=== PATIENT | female | born 1955 | race Caucasian/White ===

== ENCOUNTER → 2017-03-29 | Day surgery (SDC) | payer BC ==
[~2017-03-29] MED LIST: Lactated Ringers 1,000 ML IV SCH; Propofol 200 MG/20 ML SDV IV ONE
[2017-03-29 08:18] VITALS: BP 131/82
--- NOTE | 2017-03-29 12:54 | OR ---
DATE OF OPERATION: 03/29/2017 PREOPERATIVE DIAGNOSIS: SCREENING COLONOSCOPY. POSTOPERATIVE DIAGNOSIS: SCREENING COLONOSCOPY. SURGEON: Trav Bullard MD PROCEDURE: FULL-LENGTH COLONOSCOPY. ANESTHESIA: PHP ARCHITECT. COMPLICATIONS: None. SPECIMEN: None. FINDINGS: 1. Full-length colonoscopy. 2. Mild sigmoid diverticulosis. RECOMMENDATIONS: Routine colonoscopy every 10 years. INDICATIONS: The patient was in for routine physical, it has been over 10 years since her last screening procedure. Faiza Sawant PA-C, recommended colonoscopy. DESCRIPTION OF PROCEDURE: The patient was prepped and draped, placed in the left lateral decubitus position. A lubricated Olympus colonoscope was inserted and with ease advanced to the cecum. We were able to directly visualize the ileocecal valve and appendiceal orifice. The bowel prep was excellent. Upon withdrawal of the scope throughout the entire length of the colon, I found no signs of any polyps, masses, ulcerations, or bleeding sites. No vascular abnormalities or signs of colitis. The patient did have a few scattered diverticula in the mid to distal sigmoid area, into the rectosigmoid junction, no acute inflammatory changes were seen. The rectal vault was unremarkable. Retroflexion of the scope in the rectum showed no perianal changes or masses. Air was then suctioned. The scope was removed without complication. NORBERTO/APURVA /[id number]
== END ==
LOC: CC.SDS 06:23
PROVIDERS: ATTEND Family Medicine
DX: Z12.11 Encounter for screening for malignant neoplasm of colon (principal); K57.30 Diverticulosis of large intestine without perforation or abscess without bleeding
CPT/HCPCS: 45378; J2704; J7120

== ENCOUNTER 2018-06-09 22:40 | Inpatient (IN) | payer BC ==
[2018-06-09] MEDS ORDERED: Sodium Chloride 0.9% 1,000 ML IV ONE (22:51)
[2018-06-09] MEDS ORDERED: Ondansetron 4 MG/2 ML SDV ONE (22:52)
[2018-06-09] MEDS ORDERED: fentaNYL 100 MCG/2 ML SDV ONE (22:52)
[2018-06-09] MEDS ORDERED: fentaNYL 100 MCG/2 ML SDV IVPUSH ONE (22:59)
[2018-06-09] MEDS ORDERED: Pantoprazole 40 MG Vial IVPUSH SCH (23:00)
[2018-06-09] MEDS ORDERED: Ondansetron 4 MG/2 ML SDV IVPUSH ONE ×2 (23:00→23:09)
[2018-06-09 23:11] LABS: CHLORIDE,CL 105 mEq/L (98-106); SODIUM,NA 137 mEq/L (136-145)
--- NOTE | 2018-06-09 23:35 | EDM.PDOC ---
ED HPI GENERAL MEDICAL PROBLEM - General Chief Complaint: Abdominal Pain Stated Complaint: ABDOMINAL PAIN Time Seen by Provider: 06/09/18 22:50 Source of Information: Reports: Patient - History of Present Illness INITIAL COMMENTS - FREE TEXT/NARRATIVE: States that she started to have abdominal pain about 1pm today. The pain has progressively become worse until she presented to the ER with severe pain. She vomited when she arrived here. She had diarrhea stool times 2. She is complaining of abdominal pain across the top of the abdomen. No fever. has never had pain like this before. Has had an appendectomy, still has gallbladder. Has not ate anything unusual. Onset: Today Duration: Getting Worse Location: Reports: Abdomen Quality: Reports: Stabbing Severity: Severe Associated Symptoms: Reports: Nausea/Vomiting Abdominal Pain Score (Numeric/FACES): 9 - Related Data Allergies Allergy/AdvReac Type Severity Reaction Status Date / Time No Known Allergies Allergy Verified 03/29/17 06:32 Home Meds: Home Meds Aspirin 325 mg PO BEDTIME 03/28/17 [History] Cholecalciferol (Vitamin D3) [Vitamin D3] 1,000 units PO DAILY 03/28/17 [History ] Magnesium 250 mg PO DAILY 03/28/17 [History] Calcium Carbonate [Calcium] 500 mg PO DAILY 06/09/18 [History] Celecoxib 200 mg PO DAILY 06/09/18 [History] Letrozole 2.5 mg PO BEDTIME 06/09/18 [History] Simvastatin 20 mg PO BEDTIME 06/09/18 [History] Past Medical History - Past Surgical History GI Surgical History: Reports: Appendectomy Social & Family History - Tobacco Use Smoking Status *Q: Never Smoker - Caffeine Use Caffeine Use: Reports: Coffee - Living Situation & Occupation Living situation: Reports: , Alone Occupation: Employed ED ROS GENERAL - Review of Systems Review Of Systems: See Below Constitutional: Denies: Fever, Chills HEENT: Reports: No Symptoms Respiratory: Reports: No Symptoms Cardiovascular: Reports: No Symptoms GI/Abdominal: Reports: Abdominal Pain, Diarrhea, Nausea, Vomiting : Reports: No Symptoms Musculoskeletal: Reports: No Symptoms Skin: Reports: No Symptoms Neurological: Reports: No Symptoms Psychiatric: Reports: No Symptoms Hematologic/Lymphatic: Reports: No Symptoms ED EXAM, GI/ABD - Physical Exam Exam: See Below Exam Limited By: No Limitations General Appearance: Alert, WD/WN, Severe Distress Eyes: Bilateral: Normal Appearance Ears: Normal Canal, Normal TMs Nose: Normal Inspection, Normal Mucosa Throat/Mouth: Normal Inspection, Normal Oropharynx, No Airway Compromise Head: Atraumatic, Normocephalic Neck: Normal Inspection, Supple, Non-Tender, Full Range of Motion Respiratory/Chest: No Respiratory Distress, Lungs Clear, Normal Breath Sounds Cardiovascular: Regular Rate, Rhythm, No Edema GI/Abdominal Exam: Soft, Tender (abdomen is tender throughout the entire abdomen.), Abnormal Bowel Sounds (No bowel sounds heard) Back Exam: Normal Inspection Extremities: No Pedal Edema, Normal Capillary Refill Neurological: Alert, Oriented, Normal Cognition Psychiatric: Normal Affect Skin Exam: Warm, Dry, Intact Course - Vital Signs Last Recorded V/S: Last Vital Signs Temp 97.2 F 06/09/18 23:56 Pulse 73 06/09/18 23:56 Resp 20 06/09/18 23:56 BP 116/55 L 06/09/18 23:56 Pulse Ox 99 06/09/18 23:56 - Orders/Labs/Meds Orders: Active Orders 24 hr Category Date Time Status Patient Status [ADT] Routine ADT 06/09/18 23:56 Active Height and Weight [RC] .PRN Care 06/09/18 23:56 Active Intake and Output [RC] 0600,1800 Care 06/09/18 23:56 Active Oxygen Therapy [RC] .PRN Care 06/09/18 23:56 Active Up ad Betzy [RC] .PRN Care 06/09/18 23:56 Active Vital Signs [RC] 0000,0400,0800,1200,1600,2000 Care 06/09/18 23:56 Active Nothing per Oral Now Diet [DIET] Diet 06/09/18 Breakfast Active Abdomen Pelvis w Cont [CT] Routine Exams 06/09/18 Taken C-REACTIVE PROTEIN [CHEM] AM Lab 06/10/18 05:11 Ordered CBC WITH AUTO DIFF [HEME] AM Lab 06/10/18 05:11 Ordered COMPREHENSIVE METABOLIC PN,CMP [CHEM] AM Lab 06/10/18 05:11 Ordered STOOL CULTURE [MREF] Stat Lab 06/09/18 22:48 Ordered UA W/MICROSCOPIC [URIN] Stat Lab 06/09/18 22:48 Ordered Enoxaparin [Lovenox] Med 06/09/18 23:56 Active 30 mg SUBCUT Q24H Ondansetron [Zofran] Med 06/09/18 23:56 Active 4 mg IV Q4H PRN Sodium Chloride 0.9% [Normal Saline] 1,000 ml Med 06/09/18 23:56 Active IV ASDIRECTED Resuscitation Status Routine Resus Stat 06/09/18 23:51 Ordered Medication Orders Enoxaparin Sodium (Lovenox) 30 mg SUBCUT Q24H [facility] Last Admin: 06/10/18 00:28 Dose: 30 mg Fentanyl (Sublimaze) 50 mcg IVPUSH Q4H PRN PRN Reason: Pain Last Admin: 06/10/18 00:26 Dose: 50 mcg Sodium Chloride (Normal Saline) 1,000 mls @ 125 mls/hr IV ASDIRECTED [facility] Last Admin: 06/10/18 00:26 Dose: 125 mls/hr Ondansetron HCl (Zofran) 4 mg IV Q4H PRN PRN Reason: Nausea/Vomiting Pantoprazole Sodium (Protonix Iv) 40 mg IVPUSH Q24H [facility] Labs: Laboratory Tests 06/09/18 06/09/18 06/09/18 Range/Units 22:48 22:50 22:50 WBC 8.5 (5.0-10.0) 10^3/uL RBC 4.42 (4.00-5.50) 10^6/uL Hgb 13.5 (12.0-16.0) g/dL Hct 39.6 (37.0-47.0) % MCV 89.6 (82.0-94.0) fL MCH 30.5 (27.0-32.0) pg MCHC 34.1 (33.0-38.0) g/dL RDW Coeff of Felisa 12.7 (11.0-15.0) % Plt Count 236 (150-400) 10^3/uL Neut % (Auto) 78.6 (35-85) % Lymph % (Auto) 13.8 (10-55) % [place] % (Auto) 6.1 (0-16) % Eos % (Auto) 1.3 (0-5) % Baso % (Auto) 0.2 (0-3) % Neut # (Auto) 6.64 (1.80-7.00) 10^3/uL Lymph # (Auto) 1.17 (1.00-4.80) 10^3/uL [place] # (Auto) 0.52 (0.00-0.80) 10^3/uL Eos # (Auto) 0.11 (0.00-0.45) 10^3/uL Baso # (Auto) 0.02 10^3/uL Sodium 137 (136-145) mEq/L Potassium 3.8 (3.5-5.0) mEq/L Chloride 105 (98-106) mEq/L Carbon Dioxide 25 (21-32) mmol/L BUN 18 (7-18) mg/dL Creatinine 0.9 (0.6-1.0) mg/dL Est Cr Clr Drug Dosing 49.95 mL/min Estimated GFR (MDRD) > 60 (>=60) mL/min Glucose 134 H D (75-99) mg/dL Calcium 9.5 (8.4-10.1) mg/dL Total Bilirubin 0.4 (0.0-1.0) mg/dL AST 21 (15-37) U/L ALT 24 (12-78) U/L Alkaline Phosphatase 65 (46-116) U/L C-Reactive Protein 0.5 (0.2-0.8) mg/dL Total Protein 7.4 (6.4-8.2) g/dL Albumin 3.9 (3.4-5.0) g/dL Amylase 140 H (25-115) U/L Urine Color Yellow (YELLOW) Urine Appearance Slightly cloudy (CLEAR) Urine pH 6.0 (4.5-8.0) Ur Specific [place] 1.025 H (1.003-1.020) Urine Protein Negative (NEGATIVE) mg/dL Urine Glucose (UA) Negative (NEGATIVE) mg/dL Urine Ketones 15 H (NEGATIVE) mg/dL Urine Occult Blood Trace-intact H (NEGATIVE) Urine Nitrite Negative (NEGATIVE) Urine Bilirubin Negative (NEGATIVE) Urine Urobilinogen 0.2 (0.2-1.0) EU/dL Ur Leukocyte Esterase Small H (NEGATIVE) Urine RBC 0-5 (0-5) /HPF Urine WBC 5-10 H (0-5) /HPF Ur Squamous Epith Cells Few H (NOT SEEN) /HPF Urine Bacteria Few H (NOT SEEN) /HPF Meds: Medications Generic Name Dose Route Start Last Admin Trade Name Freq PRN Reason Stop Dose Admin Enoxaparin Sodium 30 mg 06/09/18 23:56 06/10/18 00:28 Lovenox SUBCUT 30 mg Q24H JOSSELIN Administration Fentanyl 50 mcg 06/10/18 00:17 06/10/18 00:26 Sublimaze IVPUSH 50 mcg Q4H PRN Administration Pain Sodium Chloride 1,000 mls @ 125 mls/hr 06/09/18 23:56 06/10/18 00:26 Normal Saline IV 125 mls/hr ASDIRECTED JOSSELIN Administration Ondansetron HCl 4 mg 06/09/18 23:56 Zofran IV Q4H PRN Nausea/Vomiting Pantoprazole Sodium 40 mg 06/10/18 20:00 Protonix Iv IVPUSH Q24H JOSSELIN Discontinued Medications Generic Name Dose Route Start Last Admin Trade Name Freq PRN Reason Stop Dose Admin Fentanyl 50 mcg 06/09/18 22:59 06/09/18 23:02 Sublimaze IVPUSH 06/09/18 23:00 50 mcg ONETIME ONE Administration Fentanyl Confirm 06/09/18 22:52 06/09/18 23:10 Sublimaze Administered 06/09/18 22:53 Not Given Dose 100 mcg .ROUTE .STK-MED ONE Sodium Chloride 1,000 mls @ 999 mls/hr 06/09/18 22:51 06/09/18 23:25 Normal Saline IV 06/09/18 23:51 999 mls/hr .BOLUS ONE Administration Ondansetron HCl 4 mg 06/09/18 23:00 06/09/18 23:13 Zofran IVPUSH 06/09/18 23:01 4 mg STAT ONE Administration Ondansetron HCl Confirm 06/09/18 22:52 06/09/18 23:10 Zofran Administered 06/09/18 22:53 Not Given Dose 8 mg .ROUTE .STK-MED ONE Ondansetron HCl 4 mg 06/09/18 23:09 06/09/18 23:05 Zofran IVPUSH 06/09/18 23:10 4 mg STAT ONE Administration Pantoprazole Sodium 40 mg 06/09/18 23:00 06/09/18 22:50 Protonix Iv IVPUSH 40 mg Q24H JOSSELIN Administration - Re-Assessments/Exams Free Text/Narrative Re-Assessment/Exam: 06/09/18 23:30 states that the pain is better and the nausea has improved. Discussed the normal labs except the amylase is elevated. She denies alcohol use. Departure - Departure Time of Disposition: 23:55 Disposition: Admitted As Inpatient 64 Condition: Fair Clinical Impression: Small bowel obstruction - Discharge Information *PRESCRIPTION DRUG MONITORING PROGRAM REVIEWED*: Not Applicable *COPY OF PRESCRIPTION DRUG MONITORING REPORT IN PATIENT MABLE: Not Applicable - Problem List & Annotations (1) Small bowel obstruction SNOMED Code(s): 434226669 Code(s): K56.609 - UNSP INTESTNL OBST, UNSP TO PARTIAL VERSUS COMPLETE OBST Status: Acute Priority: High Current Visit: Yes - Problem List Review Problem List Initiated/Reviewed/Updated: Yes - My Orders Last 24 Hours: My Active Orders 06/09/18 Abdomen Pelvis w Cont [CT] Routine 06/09/18 22:48 STOOL CULTURE [MREF] Stat UA W/MICROSCOPIC [URIN] Stat 06/09/18 23:51 Resuscitation Status Routine 06/09/18 23:56 Patient Status [ADT] Routine Height and Weight [RC] .PRN Intake and Output [RC] 0600,1800 Oxygen Therapy [RC] .PRN Up ad Betzy [RC] .PRN Vital Signs [RC] 0000,0400,0800,1200,1600,2000 Enoxaparin [Lovenox] 30 mg SUBCUT Q24H Ondansetron [Zofran] 4 mg IV Q4H PRN Sodium Chloride 0.9% [Normal Saline] 1,000 ml IV ASDIRECTED 06/09/18 Breakfast Nothing per Oral Now Diet [DIET] 06/10/18 05:11 C-REACTIVE PROTEIN [CHEM] AM CBC WITH AUTO DIFF [HEME] AM COMPREHENSIVE METABOLIC PN,CMP [CHEM] AM - Assessment/Plan Admission H&P: Please use this note as an admission H&P Last 24 Hours: My Active Orders 06/09/18 Abdomen Pelvis w Cont [CT] Routine 06/09/18 22:48 STOOL CULTURE [MREF] Stat UA W/MICROSCOPIC [URIN] Stat 06/09/18 23:51 Resuscitation Status Routine 06/09/18 23:56 Patient Status [ADT] Routine Height and Weight [RC] .PRN Intake and Output [RC] 0600,1800 Oxygen Therapy [RC] .PRN Up ad Betzy [RC] .PRN Vital Signs [RC] 0000,0400,0800,1200,1600,2000 Enoxaparin [Lovenox] 30 mg SUBCUT Q24H Ondansetron [Zofran] 4 mg IV Q4H PRN Sodium Chloride 0.9% [Normal Saline] 1,000 ml IV ASDIRECTED 06/09/18 Breakfast Nothing per Oral Now Diet [DIET] 06/10/18 05:11 C-REACTIVE PROTEIN [CHEM] AM CBC WITH AUTO DIFF [HEME] AM COMPREHENSIVE METABOLIC PN,CMP [CHEM] AM Plan: Will admit to acute care Dr. Bullard service. NG, IV protonix, Zofran, and Fentanyl for pain.
[2018-06-09] MEDS ORDERED: Ondansetron 4 MG/2 ML SDV IV PRN (23:56)
[2018-06-09] MEDS ORDERED: Enoxaparin 30 MG/0.3 ML Syringe SUBCUT SCH (23:56)
[2018-06-10] MEDS ORDERED: fentaNYL 100 MCG/2 ML SDV IVPUSH PRN ×2 (00:17→00:51)
[2018-06-10] MEDS: Sodium Chloride 0.9% 1,000 ML IV SCH ×4 (00:26→23:51)
[2018-06-10] MEDS: Non-Formulary Medication 1 Each IVPUSH SCH ×2 (05:45→18:08)
[2018-06-10 07:20] LABS: CHLORIDE,CL 109 mEq/L (98-106); SODIUM,NA 139 mEq/L (136-145)
--- NOTE | 2018-06-10 11:51 | PN ---
DATE: 06/10/2018 S: Cathy is a 62-year-old female who started to develop abdominal pain yesterday afternoon around 1 o'clock. She ended up having some nausea and vomiting around 10:30 last night and ended up coming into the emergency room. CT scan was done and did show small bowel obstruction. She was admitted to the hospital, NG tube was placed. Cathy states that she did have another episode of emesis in the middle of night, however, has not had any since. She denies any flatulence. States she has not had any bowel movements since NG tube placement. She has got out 150 on the NG tube. They are currently giving her back fluids at 137 ml an hour. She states that she really does not have much of any abdominal pain presently. She denies any previous history of any abdominal surgeries minus appendectomy. She states that she still has her gallbladder, has had no C- section, no hysterectomy, etc. Presently, she did complain of a little bit of headache secondary to caffeine. She is requesting Mountain Dew at this point in time. Otherwise, she has not been up ambulation. Urinalysis yesterday was questionable for possible UTI. No culture was ordered. We will proceed with repeat urinalysis and culture today. O: VITAL SIGNS: Blood pressure 124/61 with a pulse of 86, temp is afebrile at 98, respiratory rate 18, and O2 sats 96%. GENERAL: Pleasant, cooperative female. Does not really appear to be in any acute distress, not acutely ill. She is sitting comfortably in examination on her hospital bed. HEENT: Grossly unremarkable. LUNGS: Clear to auscultation. No adventitious sounds. No wheezes, rhonchi, or rales. CARDIAC: Regular rate and rhythm. No murmurs, gallops, or rubs are noted. ABDOMEN: Soft. Mild tenderness in the right lower quadrant. Bowel sounds are present in right upper quadrant, otherwise scant throughout. EXTREMITIES: No pedal edema is noted. ASSESSMENT: 1. SMALL BOWEL OBSTRUCTION. 2. QUESTIONABLE URINARY TRACT INFECTION. P: After review of all of her laboratory work and consultation with Dr. Trav Bullard, it does appear that her amylase was elevated yesterday at 140, now currently 70 today. We will get a right upper quadrant ultrasound along with repeat x-ray of the abdomen flat and upright. We will consider clamping NG tube at noon today with given sips of Mountain Dew at that point in time to see if she tolerates it. We did encourage her that she needs to be up moving around and being ambulatory. Cathy is in complete understanding. We will evaluate this afternoon again. CLAUDIA /[id number]
[2018-06-10] MEDS ORDERED: Ketorolac 30 MG/ML SDV IVPUSH ONE (13:27)
[2018-06-10] MEDS: cefTRIAXone 1 GM Vial IVPUSH SCH (13:45)
[2018-06-10] MEDS ORDERED: Enoxaparin 30 MG/0.3 ML Syringe SUBCUT SCH (20:00)
[2018-06-10] MEDS ORDERED: Pantoprazole 40 MG Vial IVPUSH SCH (20:00)
[2018-06-11] MEDS: Non-Formulary Medication 1 Each IVPUSH SCH (06:09)
[2018-06-11] MEDS ORDERED: Ketorolac 30 MG/ML SDV IVPUSH ONE (10:10)
[2018-06-11] MEDS: cefTRIAXone 1 GM Vial IVPUSH SCH (12:29)
[2018-06-11] MEDS: Sodium Chloride 0.9% 1,000 ML IV SCH (15:36)
[2018-06-11 16:15] VITALS: BP 113/53
--- NOTE | 2018-06-11 20:07 | PN ---
DATE: 06/11/2018 S: Mrs. Morgan is a 62-year-old female who was admitted to the hospital on 06/09/2018 by Faiza Sawant secondary to a small bowel obstruction. She had an NG tube placed in which she did not have any further vomiting. She up until now has not had any bowel movement since admission, however, she does admit that her bowels have been appearing to be moving well. She does admit to excessive amount of gas. Discomfort has improved as well. She did have some clear liquids, which she has been able to keep down. She states that currently she does not really have much in any discomfort. O: VITAL SIGNS: Blood pressure 121/62, O2 is 91% to 95%, respiratory rate 18, and pulse of 60. GENERAL: Pleasant, cooperative female. Does not really appear to be in any acute distress, not acutely ill. HEENT: Grossly unremarkable. LUNGS: Clear to auscultation. I do not hear any adventitious sounds. CARDIAC: Regular. ABDOMEN: Soft, fairly benign throughout. Bowel sounds are normoactive. EXTREMITIES: No pedal edema is noted. SKIN: Uniformly pink, warm, and dry. ASSESSMENT: SMALL BOWEL OBSTRUCTION. P: I did consult with Dr. Trav Bullard in regard to Mrs. Morgan's condition. We will look at advancing her diet to full liquid diet at lunch today and having NG tube removed. I will see how she does with this. If she starts to have some bowel movements, we will get her up and continue to be ambulatory. We will look at possibly discharge home this evening. Mrs. Morgan was in complete understanding. ABDIRAHMAN/APURVA /[id number]
--- NOTE | 2018-06-12 09:28 | DISCH ---
ADMISSION DIAGNOSIS: Partial small bowel obstruction. DISCHARGE DIAGNOSIS: PARTIAL SMALL BOWEL OBSTRUCTION. HISTORY: The patient is a healthy 62-year-old female, who presented to the emergency room for acute onset of abdominal pain, vomiting, and a few brief episodes of diarrhea. She was evaluated by Faiza Sawant. At that time, she had stable and normal vital signs without fever. Lab work was essentially unremarkable, although she had a slightly elevated amylase and she was volume contracted with a spec gravity of 1.025. CT scanning of the abdomen showed a partial small bowel obstruction. She was admitted to the hospital for appropriate cares including IV fluids and G-tube placement. HOSPITAL COURSE: The patient did well while in the hospital. On the morning after admission, the patient had a mild amount of NG output in the first 12 hours and then slowed down considerably. She was not having much for any significant abdominal pain after about 20 hours in the hospital, actually clamped her NG and allowed her to start some clear liquids. On the morning of discharge, which is approximately 36 hours after admission, the patient tolerated the NG clamping. We had serial flat and upright of the abdomen, which showed what appeared to be resolution of her air fluid levels and air passing all the way through the colon to the rectal area. She was passing gas and ultimately had 2 stools. We advanced her to a full liquid diet. At the time of her discharge late in the afternoon on the , the patient was pain free, having no issues with bloating, nausea, vomiting, etc. We felt her stable to be discharged home on strict dietary instructions for slow advancement of her diet. We will follow her up in the clinic next week for recheck. COMPLICATIONS: During her stay were none. CONSULTATIONS: None. DISPOSITION: Discharged home. MAO /[id number]
== END 2018-06-11 17:00 | disposition home or self-care (01) | DRG 247 ==
LOC: CC.ED 22:40 → CC.MS 23:51 → UNDOADMIN 23:53 → CC.MS 23:53
PROVIDERS: ADMIT Physician Assistant Medical; ATTEND Family Medicine
PROC: 0D9670Z Drainage of Stomach with Drainage Device, Via Natural or Artificial Opening (ICD-10-PCS; principal; 2018-06-09)
DX: K56.600 Partial intestinal obstruction, unspecified as to cause (principal); Z79.899 Other long term (current) drug therapy; Z79.82 Long term (current) use of aspirin; N39.0 Urinary tract infection, site not specified
CPT/HCPCS: 36415; 74019; 74177; 76705; 80053; 81001; 82150; 85025; 86140; 87045; 87046; 87086; 87493; 96365; 96366; 96375; 99285; C9113; J0696; J1650; J1885; J2405; J3010; J7030; Q9967

== ENCOUNTER 2018-10-25 08:13 | Observation (INO) | payer BC ==
[2018-10-25] MEDS ORDERED: Morphine 4 MG/ML Syringe IVPUSH ONE (08:23)
[2018-10-25] MEDS ORDERED: Ondansetron 4 MG/2 ML SDV IVPUSH STA ×2 (08:23→23:10)
--- NOTE | 2018-10-25 08:56 | EDM.PDOC ---
ED HPI GENERAL MEDICAL PROBLEM - General Chief Complaint: Lower Extremity Injury/Pain Stated Complaint: left hip pain Time Seen by Provider: 10/25/18 08:15 Source of Information: Reports: Patient History Limitations: Reports: No Limitations - History of Present Illness INITIAL COMMENTS - FREE TEXT/NARRATIVE: This patient is a 63 year old female that presents to the ER. Patient reports that she woke up this morning with let anterior hip pain. Patient reports that she has never had this pain before. Patient reports that the pain is severe and she was not able to get up this morning. Patient denies injury or falling. Patient reports that she has not had issues out of this hip before. The patient denies cummings, dizziness, neck pain, neck stiffness, cp, soa, back pain, flank pain , urinary/bowel changes, urinary incontinence, bowel incontinence, n, v, d, f, numbness/tingling, unilateral weakness, generalized weakness, edema, rashes. Onset: Today Onset Date: 10/25/18 Duration: Hour(s): (3) Location: Reports: Lower Extremity, Left Front/Back Body Image: 1 - pain, tenderness. Quality: Reports: Sharp, Throbbing Improves with: Reports: Other (applying pressure on the site.) Associated Symptoms: Denies: Confusion, Chest Pain, Cough, cough w sputum, Diaphoresis, Fever/Chills, Headaches, Loss of Appetite, Nausea/Vomiting, Rash, Seizure, Shortness of Breath, Weakness Left Hip Pain Score (Numeric/FACES): 10 - Related Data Allergies Allergy/AdvReac Type Severity Reaction Status Date / Time No Known Allergies Allergy Verified 10/25/18 08:21 Home Meds: Home Meds Aspirin 325 mg PO BEDTIME 03/28/17 [History] Cholecalciferol (Vitamin D3) [Vitamin D3] 1,000 units PO DAILY 03/28/17 [History ] Magnesium 250 mg PO DAILY 03/28/17 [History] Calcium Carbonate [Calcium] 500 mg PO DAILY 06/09/18 [History] Celecoxib 200 mg PO DAILY 06/09/18 [History] Letrozole 2.5 mg PO BEDTIME 06/09/18 [History] Simvastatin 20 mg PO BEDTIME 06/09/18 [History] Past Medical History HEENT History: Reports: Impaired Vision Cardiovascular History: Reports: High Cholesterol 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: Oncologic (Cancer) History: Reports: Breast - Past Surgical History GI Surgical History: Reports: Appendectomy Social & Family History - Caffeine Use Caffeine Use: Reports: Coffee - Living Situation & Occupation Living situation: Reports: , Alone Occupation: Employed Review of Systems - Review of Systems Review Of Systems: See Below Constitutional: Reports: No Symptoms Eyes: Reports: No Symptoms Ears: Reports: No Symptoms Nose: Reports: No Symptoms Mouth/Throat: Reports: No Symptoms Respiratory: Reports: No Symptoms Cardiovascular: Reports: Lightheadedness GI/Abdominal: Reports: No Symptoms Genitourinary: Reports: No Symptoms Musculoskeletal: Reports: Joint Pain (left atnerior hip pain. ). Denies: Back Pain, Leg Pain, Joint Swelling Skin: Reports: No Symptoms Neurological: Reports: No Symptoms, Change in Speech Psychiatric: Reports: No Symptoms ED EXAM, GENERAL - Physical Exam Exam: See Below Exam Limited By: No Limitations General Appearance: Alert, WD/WN, Other (In pain. Patient is rolling around in the stretcher and appears to be in severe pain. ) Eye Exam: Bilateral Eye: Normal Inspection, PERRL Ears: Normal External Exam, Normal Canal, Hearing Grossly Normal, Normal TMs Ear Exam: Bilateral Ear: Auricle Normal, Canal Normal, TM normal Nose: Normal Inspection, Normal Mucosa, Nasal Drainage Throat/Mouth: Normal Inspection, Normal Lips, Normal Teeth, Normal Gums, Normal Oropharynx, Normal Voice, No Airway Compromise Head: Atraumatic, Normocephalic Neck: Normal Inspection, Supple, Non-Tender, Full Range of Motion Respiratory/Chest: No Respiratory Distress, Lungs Clear, Normal Breath Sounds, No Accessory Muscle Use Cardiovascular: Normal Peripheral Pulses, Regular Rate, Rhythm, No Edema, No Gallop, No JVD, No Murmur, No Rub Peripheral Pulses: 2+: Posterior Tibial (L), Posterior Tibial (R), Dorsalis Pedis (L), Dorsalis Pedis (R) GI/Abdominal: Normal Bowel Sounds, Soft, Non-Tender, No Organomegaly, No Distention, No Abnormal Bruit, No Mass, Pelvis Stable (Female) Exam: Deferred Rectal (Female) Exam: Deferred Back Exam: Normal Inspection, Full Range of Motion. No: CVA Tenderness (L), CVA Tenderness (R), Decreased Range of Motion, Muscle Spasm, Paraspinal Tenderness, Vertebral Tenderness Extremities: Normal Inspection, No Pedal Edema, Normal Capillary Refill, Limited Range of Motion (decreased due to pain), Other (left atnerior hip mild tenderness. ) Neurological: Alert, Oriented, CN II-XII Intact, Normal Cognition, No Motor/ Sensory Deficits Psychiatric: Anxious, Other (In pain) Skin Exam: Warm, Dry, Intact, Normal Color, No Rash Lymphatic: No Adenopathy Course - Vital Signs Last Recorded V/S: Last Vital Signs Temp 99.5 F 10/25/18 12:50 Pulse 77 10/25/18 12:50 Resp 20 10/25/18 12:50 BP 117/54 L 10/25/18 12:50 Pulse Ox 99 10/25/18 12:50 - Orders/Labs/Meds Orders: Active Orders 24 hr Category Date Time Status Abdomen Pelvis w wo Cont [CT] Stat Exams 10/25/18 11:38 Ordered Hip Min 2V or 3V w Pelvis Lt [CR] Stat Exams 10/25/18 08:38 Taken Hip wo Cont Lt [CT] Stat Exams 10/25/18 09:40 Taken VL Duplex Lwr Ext Veins Ltd Lt [US] Routine Exams 10/25/18 Taken CULTURE BLOOD [BC] Stat Lab 10/25/18 09:00 Received CULTURE BLOOD [BC] Stat Lab 10/25/18 09:05 Received LIPASE [REF] Stat Lab 10/25/18 09:05 Received Orphenadrine [Norflex] Med 10/25/18 08:45 Active 60 mg IM Q12H Blood Culture x2 Reflex Set [OM.PC] Stat Oth 10/25/18 08:49 Ordered Medication Orders Orphenadrine Citrate (Norflex) 60 mg IM Q12H [facility] Last Admin: 10/25/18 09:13 Dose: 60 mg Labs: Laboratory Tests 10/25/18 10/25/18 10/25/18 Range/Units 09:00 09:00 09:05 WBC 6.3 (5.0-10.0) 10^3/uL RBC 4.06 (4.00-5.50) 10^6/uL Hgb 12.5 (12.0-16.0) g/dL Hct 36.9 L (37.0-47.0) % MCV 90.9 (82.0-94.0) fL MCH 30.8 (27.0-32.0) pg MCHC 33.9 (33.0-38.0) g/dL RDW Coeff of Felisa 12.8 (11.0-15.0) % Plt Count 216 (150-400) 10^3/uL Neut % (Auto) 83.2 (35-85) % Lymph % (Auto) 11.4 (10-55) % [place] % (Auto) 3.8 (0-16) % Eos % (Auto) 1.3 (0-5) % Baso % (Auto) 0.3 (0-3) % Neut # (Auto) 5.27 (1.80-7.00) 10^3/uL Lymph # (Auto) 0.72 L (1.00-4.80) 10^3/uL [place] # (Auto) 0.24 (0.00-0.80) 10^3/uL Eos # (Auto) 0.08 (0.00-0.45) 10^3/uL Baso # (Auto) 0.02 10^3/uL ESR 15 (0-20) mm/hr D-Dimer, Quantitative (0.00-0.50) Sodium 142 (136-145) mEq/L Potassium 4.0 (3.5-5.0) mEq/L Chloride 106 (98-106) mEq/L Carbon Dioxide 28 (21-32) mmol/L BUN 18 (7-18) mg/dL Creatinine 0.7 (0.6-1.0) mg/dL Est Cr Clr Drug Dosing 63.37 mL/min Estimated GFR (MDRD) > 60 (>=60) mL/min Glucose 107 H (75-99) mg/dL Lactic Acid 1.3 (0.4-2.0) mmol/L Calcium 8.8 (8.4-10.1) mg/dL Total Bilirubin 0.4 (0.0-1.0) mg/dL AST 20 (15-37) U/L ALT 25 (12-78) U/L Alkaline Phosphatase 74 (46-116) U/L C-Reactive Protein 0.2 (0.2-0.8) mg/dL Total Protein 6.8 (6.4-8.2) g/dL Albumin 3.4 (3.4-5.0) g/dL Urine Color (YELLOW) Urine Appearance (CLEAR) Urine pH (4.5-8.0) Ur Specific [place] (1.003-1.020) Urine Protein (NEGATIVE) mg/dL Urine Glucose (UA) (NEGATIVE) mg/dL Urine Ketones (NEGATIVE) mg/dL Urine Occult Blood (NEGATIVE) Urine Nitrite (NEGATIVE) Urine Bilirubin (NEGATIVE) Urine Urobilinogen (0.2-1.0) EU/dL Ur Leukocyte Esterase (NEGATIVE) Urine RBC (0-5) /HPF Urine WBC (0-5) /HPF Ur Squamous Epith Cells (NOT SEEN) /HPF Urine Bacteria (NOT SEEN) /HPF 10/25/18 10/25/18 Range/Units 09:05 09:39 WBC (5.0-10.0) 10^3/uL RBC (4.00-5.50) 10^6/uL Hgb (12.0-16.0) g/dL Hct (37.0-47.0) % MCV (82.0-94.0) fL MCH (27.0-32.0) pg MCHC (33.0-38.0) g/dL RDW Coeff of Felisa (11.0-15.0) % Plt Count (150-400) 10^3/uL Neut % (Auto) (35-85) % Lymph % (Auto) (10-55) % [place] % (Auto) (0-16) % Eos % (Auto) (0-5) % Baso % (Auto) (0-3) % Neut # (Auto) (1.80-7.00) 10^3/uL Lymph # (Auto) (1.00-4.80) 10^3/uL [place] # (Auto) (0.00-0.80) 10^3/uL Eos # (Auto) (0.00-0.45) 10^3/uL Baso # (Auto) 10^3/uL ESR (0-20) mm/hr D-Dimer, Quantitative 0.63 H (0.00-0.50) Sodium (136-145) mEq/L Potassium (3.5-5.0) mEq/L Chloride (98-106) mEq/L Carbon Dioxide (21-32) mmol/L BUN (7-18) mg/dL Creatinine (0.6-1.0) mg/dL Est Cr Clr Drug Dosing mL/min Estimated GFR (MDRD) (>=60) mL/min Glucose (75-99) mg/dL Lactic Acid (0.4-2.0) mmol/L Calcium (8.4-10.1) mg/dL Total Bilirubin (0.0-1.0) mg/dL AST (15-37) U/L ALT (12-78) U/L Alkaline Phosphatase (46-116) U/L C-Reactive Protein (0.2-0.8) mg/dL Total Protein (6.4-8.2) g/dL Albumin (3.4-5.0) g/dL Urine Color Yellow (YELLOW) Urine Appearance Clear (CLEAR) Urine pH 7.0 (4.5-8.0) Ur Specific [place] 1.020 (1.003-1.020) Urine Protein Negative (NEGATIVE) mg/dL Urine Glucose (UA) Negative (NEGATIVE) mg/dL Urine Ketones Negative (NEGATIVE) mg/dL Urine Occult Blood Trace-intact H (NEGATIVE) Urine Nitrite Negative (NEGATIVE) Urine Bilirubin Negative (NEGATIVE) Urine Urobilinogen 0.2 (0.2-1.0) EU/dL Ur Leukocyte Esterase Trace H (NEGATIVE) Urine RBC 0-5 (0-5) /HPF Urine WBC 0-5 (0-5) /HPF Ur Squamous Epith Cells Occasional H (NOT SEEN) /HPF Urine Bacteria Occasional H (NOT SEEN) /HPF Meds: Medications Generic Name Dose Route Start Last Admin Trade Name Freq PRN Reason Stop Dose Admin Orphenadrine Citrate 60 mg 10/25/18 08:45 10/25/18 09:13 Norflex IM 60 mg Q12H JOSSELIN Administration Discontinued Medications Generic Name Dose Route Start Last Admin Trade Name Freq PRN Reason Stop Dose Admin Diazepam 4 mg 10/25/18 11:33 10/25/18 12:22 Valium IVPUSH 10/25/18 11:34 Not Given ONETIME ONE Diazepam 5 mg 10/25/18 14:47 Valium. PO 10/25/18 14:48 ONETIME ONE Hydromorphone HCl 1 mg 10/25/18 12:15 10/25/18 12:21 Dilaudid IVPUSH 10/25/18 12:16 1 mg ONETIME ONE Administration Hydromorphone HCl 0.5 mg 10/25/18 14:41 10/25/18 14:48 Dilaudid IVPUSH 10/25/18 14:42 0.5 mg ONETIME ONE Administration Lorazepam 1 mg 10/25/18 12:15 10/25/18 14:46 Ativan IVPUSH 10/25/18 12:16 Not Given ONETIME ONE Morphine Sulfate 4 mg 10/25/18 08:23 10/25/18 08:32 Morphine IVPUSH 10/25/18 08:24 4 mg ONETIME ONE Administration Morphine Sulfate 2 mg 10/25/18 09:41 10/25/18 12:25 Morphine IVPUSH 10/25/18 09:42 Not Given ONETIME ONE Ondansetron HCl 4 mg 10/25/18 08:23 10/25/18 08:30 Zofran IVPUSH 10/25/18 08:24 4 mg NOW STA Administration - Radiology Interpretation Free Text/Narrative:: Xray left hip: read by radiologist no actue findings CT Left hip: read by radiologist osteophytes, but no acute findings. CT Results Date: 10/25/18 CT Results Time: 13:55 - Re-Assessments/Exams Free Text/Narrative Re-Assessment/Exam: 10/25/18 12:16 Patient is still in a lot of pain after Morphine and Norflex. I wanted to order Valium, but not available due to shortage. I have now ordered Dilaudid and Ativan. 10/25/18 12:17 I have called and spoken to Dr. Ansari radiologist at [facility]. We have discussed patient case, labs, and presentation. He has suggested a left hip ct without contrast at this time. 10/25/18 14:55 The patient after several doses of pain medications she still is having a lot of pain. Her pain has improved, but still painful. She was able to stand and use the bathroom. Pulses +2, cap refill <2 sec, sensory/motor function intact. Neurovascular intact. Xray, CT, negative. Also, an US of the LLE is negative for dvt and the artery is patent. I will admit this patient for pain control. She can not go home, she lives alone. Departure - Departure Time of Disposition: 14:57 Disposition: Refer to Observation Condition: Fair Clinical Impression: Hip pain, left, Intractable pain - Discharge Information *PRESCRIPTION DRUG MONITORING PROGRAM REVIEWED*: No *COPY OF PRESCRIPTION DRUG MONITORING REPORT IN PATIENT MABLE: No Referrals: Faiza Sawant PA-C [Primary Care Provider] - Forms: ED Department Discharge - My Orders Last 24 Hours: My Active Orders 10/25/18 VL Duplex Lwr Ext Veins Ltd Lt [US] Routine 10/25/18 08:38 Hip Min 2V or 3V w Pelvis Lt [CR] Stat 10/25/18 08:45 Orphenadrine [Norflex] 60 mg IM Q12H 10/25/18 08:49 Blood Culture x2 Reflex Set [OM.PC] Stat 10/25/18 09:00 CULTURE BLOOD [BC] Stat 10/25/18 09:05 CULTURE BLOOD [BC] Stat LIPASE [REF] Stat 10/25/18 09:40 Hip wo Cont Lt [CT] Stat 10/25/18 11:38 Abdomen Pelvis w wo Cont [CT] Stat - Assessment/Plan Last 24 Hours: My Active Orders 10/25/18 VL Duplex Lwr Ext Veins Ltd Lt [US] Routine 10/25/18 08:38 Hip Min 2V or 3V w Pelvis Lt [CR] Stat 10/25/18 08:45 Orphenadrine [Norflex] 60 mg IM Q12H 10/25/18 08:49 Blood Culture x2 Reflex Set [OM.PC] Stat 10/25/18 09:00 CULTURE BLOOD [BC] Stat 10/25/18 09:05 CULTURE BLOOD [BC] Stat LIPASE [REF] Stat 10/25/18 09:40 Hip wo Cont Lt [CT] Stat 10/25/18 11:38 Abdomen Pelvis w wo Cont [CT] Stat Plan: PLEASE SEE RN NOTE FOR PFSH.
[2018-10-25 09:26] LABS: CHLORIDE,CL 106 mEq/L (98-106); SODIUM,NA 142 mEq/L (136-145)
[2018-10-25] MEDS ORDERED: Morphine 2 MG/ML Syringe IVPUSH ONE (09:41)
[2018-10-25] MEDS ORDERED: HYDROmorphone 1 MG/ML Syringe IVPUSH ONE ×3 (12:15→23:10)
[2018-10-25] MEDS ORDERED: LORazepam 2 MG/ML Syringe IVPUSH ONE (12:15)
[2018-10-25] MEDS ORDERED: Diazepam 5 MG Tab PO ONE (14:47)
[2018-10-25] MEDS ORDERED: Enoxaparin 40 MG/0.4 ML Syringe SUBCUT SCH (16:00)
[2018-10-25] MEDS ORDERED: Acetaminophen/oxyCODONE 325-5 MG Tab PO PRN (16:01)
[2018-10-25] MEDS ORDERED: Acetaminophen 325 MG Tab PO PRN (16:01)
[2018-10-25] MEDS ORDERED: HYDROmorphone 1 MG/ML Syringe IVPUSH PRN (16:01)
[2018-10-25] MEDS ORDERED: Ondansetron 4 MG/2 ML SDV IV PRN (16:01)
[2018-10-25] MEDS ORDERED: Diazepam 5 MG Tab PO PRN (16:01)
[2018-10-25] MEDS: Ketorolac 30 MG/ML SDV IVPUSH ONE ×2 (17:12→17:38)
[2018-10-25] MEDS ORDERED: Non-Formulary Medication 1 Each (Letrozole [Letrozole] 2.5 MG) PO SCH (20:00)
[2018-10-25] MEDS ORDERED: Non-Formulary Medication 1 Each (Simvastatin [Simvastatin] 20 MG) PO SCH (20:00)
[2018-10-25] MEDS ORDERED: Non-Formulary Medication 1 Each (Aspirin [Aspirin] 325 MG) PO SCH (20:00)
[2018-10-25] MEDS ORDERED: Ketamine 500 mg/10 ML MDV IV ONE (22:08)
--- NOTE | 2018-10-25 22:43 | PCM.SN ---
- Free Text/Narrative Note: The RN reported to me the patient is still having a lot of pain after all the medications she has been given. I went to evaluate the patient again. The patient reports pain in the left lateral upper thigh just below the hip. There is no redness, no heat, no rash, no wounds. The patient continues to complain of severe pain, she is tearful. Pulses +2, cap refill < 2 sec, the leg is not pale, is warm to touch. The patient has unremarkable labs, xray, US, CT without contrast. I have spoken to Dr. Aviles with [facility]. He has now suggested to do a CTA of chest, abd/pelvis, and include the LLE. He reports other possible emergent concerns coud be aoritc disetion and thrombus of the illiac arteries. Other less emergent concerns could be lateral femoral nerve entrapment. He suggested adding a CK lab. He said to call him back after I get the results. I discussed this with the patient and she has agreed with the tests to be ordered.
[2018-10-25] MEDS ORDERED: Iopamidol 612 MG/ML 100 ML Bottle IVPUSH ONE (22:49)
[2018-10-25] MEDS ORDERED: Iopamidol 755 Mg/ML 100 ML Bottle IVPUSH ONE (23:19)
[2018-10-26] MEDS ORDERED: Sodium Chloride 0.9% 500 ML IV SCH (01:00)
[2018-10-26] MEDS: Sodium Chloride 0.9% 1,000 ML IV SCH ×2 (01:57→09:06)
[2018-10-26] MEDS: Ibuprofen 200 MG Tab PO PRN ×2 (03:55→09:56)
[2018-10-26 07:49] LABS: CHLORIDE,CL 106 mEq/L (98-106); SODIUM,NA 142 mEq/L (136-145)
[2018-10-26 07:53] VITALS: BP 102/48
[2018-10-26] MEDS ORDERED: Non-Formulary Medication 1 Each (Calcium Carbonate [Calcium] 500 MG) PO SCH (08:00)
[2018-10-26] MEDS ORDERED: Non-Formulary Medication 1 Each (Celecoxib [Celecoxib] 200 MG) PO SCH (08:00)
[2018-10-26] MEDS ORDERED: Non-Formulary Medication 1 Each (Cholecalciferol (Vitamin D3) [Vitamin D3] 1,000 UNITS) PO SCH (08:00)
[2018-10-26] MEDS ORDERED: Non-Formulary Medication 1 Each (Magnesium [Magnesium] 250 MG) PO SCH (08:00)
--- NOTE | 2018-10-26 10:36 | PCM.DCSUM1 ---
Discharge Summary - Hospital Course HPI Initial Comments: This patient wa admitted for pain in her left anterior/lateral thigh region. An angio of chest, abd/pelvis into LLE was performed to rule out AAA disection and illiac thrombus. These scans were negative as discussed with radiologist. The patient this morning reports her pain is a 4/10 and is feeling much better. She is now ambulating the halls and standing without difficulty. She reprots pain now with sitting. She denies numbness/tinlging, loss of functoin, cp, soa, back pain, urinary/bowel changes. Pulses +2. cap refill <2 sec. The patient is alert and oriented and reports she is ready to go home. I will discharge the patient home. The patient does not want any pain medication sent home with her or prescribed. She reports that Dane will work just fine. I have educated her about her pain levels and brekthrough giselle tx, but she does not want anything to take home. She is educated to return if pain becomes unbearable at home. Diagnosis: Stroke: No - Discharge Data Discharge Date: 10/26/18 Discharge Disposition: Home, Self-Care 01 Condition: Good - Patient Instructions Diet: Usual Diet as Tolerated Activity: As Tolerated Driving: Do Not Drive Showering/Bathing: May Shower Notify Provider of: Fever, Increased Pain, Swelling and Redness, Drainage, Nausea and/or Vomiting - Discharge Plan *PRESCRIPTION DRUG MONITORING PROGRAM REVIEWED*: No *COPY OF PRESCRIPTION DRUG MONITORING REPORT IN PATIENT MABLE: No Home Medications: Home Meds Aspirin 325 mg PO BEDTIME 03/28/17 [History] Cholecalciferol (Vitamin D3) [Vitamin D3] 1,000 units PO DAILY 03/28/17 [History ] Magnesium 250 mg PO DAILY 03/28/17 [History] Calcium Carbonate [Calcium] 500 mg PO DAILY 06/09/18 [History] Celecoxib 200 mg PO DAILY 06/09/18 [History] Letrozole 2.5 mg PO BEDTIME 06/09/18 [History] Simvastatin 20 mg PO BEDTIME 06/09/18 [History] Calcium Carbonate [Calcium] 500 mg PO DAILY 10/26/18 [Rx] Patient Handouts: Heat Therapy, [id number], Musculoskeletal Pain, Hip Pain Forms: ED Department Discharge Referrals: Faiza Sawant PA-C [Primary Care Provider] - - Discharge Summary/Plan Comment DC Time >30 min.: No - General Info Date of Service: 10/26/18 Functional Status: Reports: Pain Controlled (much improved. ), Tolerating Diet, Ambulating - Review of Systems General: Reports: No Symptoms HEENT: Reports: No Symptoms Pulmonary: Reports: No Symptoms Cardiovascular: Reports: No Symptoms Gastrointestinal: Reports: No Symptoms Genitourinary: Reports: No Symptoms Musculoskeletal: Reports: Leg Pain (left proximal 1/3 lateral and anterior thigh pain. ) Skin: Reports: No Symptoms Neurological: Reports: No Symptoms Psychiatric: Reports: No Symptoms - Patient Data Vitals - Most Recent: Last Vital Signs Temp 97.7 F 10/26/18 07:53 Pulse 71 10/26/18 07:53 Resp 20 10/26/18 07:53 BP 102/48 L 10/26/18 07:53 Pulse Ox 97 10/26/18 07:53 Weight - Most Recent: 165 lb 6.4 oz I&O - Last 24 hours: Intake & Output 10/25/18 10/26/18 10/26/18 22:59 06:59 14:59 Intake Total 536 Balance 536 Lab Results - Last 24 hrs: Laboratory Results - last 24 hr 10/25/18 10/26/18 10/26/18 Range/Units 22:40 07:30 07:30 WBC 4.5 L (5.0-10.0) 10^3/uL RBC 3.86 L (4.00-5.50) 10^6/uL Hgb 11.9 L (12.0-16.0) g/dL Hct 35.4 L (37.0-47.0) % MCV 91.7 (82.0-94.0) fL MCH 30.8 (27.0-32.0) pg MCHC 33.6 (33.0-38.0) g/dL RDW Coeff of Felisa 13.1 (11.0-15.0) % Plt Count 212 (150-400) 10^3/uL Neut % (Auto) 57.7 (35-85) % Lymph % (Auto) 30.8 (10-55) % Real % (Auto) 9.2 (0-16) % Eos % (Auto) 1.6 (0-5) % Baso % (Auto) 0.7 (0-3) % Neut # (Auto) 2.59 (1.80-7.00) 10^3/uL Lymph # (Auto) 1.38 (1.00-4.80) 10^3/uL Real # (Auto) 0.41 (0.00-0.80) 10^3/uL Eos # (Auto) 0.07 (0.00-0.45) 10^3/uL Baso # (Auto) 0.03 10^3/uL Sodium 142 (136-145) mEq/L Potassium 3.8 (3.5-5.0) mEq/L Chloride 106 (98-106) mEq/L Carbon Dioxide 27 (21-32) mmol/L BUN 13 (7-18) mg/dL Creatinine 0.8 (0.6-1.0) mg/dL Est Cr Clr Drug Dosing 55.45 mL/min Estimated GFR (MDRD) > 60 (>=60) mL/min Glucose 111 H (75-99) mg/dL Calcium 8.5 (8.4-10.1) mg/dL Creatine Kinase 360 H (21-215) U/L C-Reactive Protein < 0.2 L (0.2-0.8) mg/dL 10/26/18 Range/Units 07:30 WBC (5.0-10.0) 10^3/uL RBC (4.00-5.50) 10^6/uL Hgb (12.0-16.0) g/dL Hct (37.0-47.0) % MCV (82.0-94.0) fL MCH (27.0-32.0) pg MCHC (33.0-38.0) g/dL RDW Coeff of Felisa (11.0-15.0) % Plt Count (150-400) 10^3/uL Neut % (Auto) (35-85) % Lymph % (Auto) (10-55) % Real % (Auto) (0-16) % Eos % (Auto) (0-5) % Baso % (Auto) (0-3) % Neut # (Auto) (1.80-7.00) 10^3/uL Lymph # (Auto) (1.00-4.80) 10^3/uL Real # (Auto) (0.00-0.80) 10^3/uL Eos # (Auto) (0.00-0.45) 10^3/uL Baso # (Auto) 10^3/uL Sodium (136-145) mEq/L Potassium (3.5-5.0) mEq/L Chloride (98-106) mEq/L Carbon Dioxide (21-32) mmol/L BUN (7-18) mg/dL Creatinine (0.6-1.0) mg/dL Est Cr Clr Drug Dosing mL/min Estimated GFR (MDRD) (>=60) mL/min Glucose (75-99) mg/dL Calcium (8.4-10.1) mg/dL Creatine Kinase 435 H (21-215) U/L C-Reactive Protein (0.2-0.8) mg/dL MEME Results - Last 24 hrs: Microbiology 10/25/18 09:05 Aerobic Blood Culture - Preliminary Blood - Venous - Lab Draw NO GROWTH AFTER 1 DAY Anaerobic Blood Culture - Preliminary NO GROWTH AFTER 1 DAY 10/25/18 09:00 Aerobic Blood Culture - Preliminary Blood - Venous NO GROWTH AFTER 1 DAY Anaerobic Blood Culture - Preliminary NO GROWTH AFTER 1 DAY Med Orders - Current: Current Medications Acetaminophen (Tylenol) 650 mg PO Q4H PRN PRN Reason: Pain (Mild 1-3)/fever Diazepam (Valium.) 5 mg PO TID PRN PRN Reason: Muscle Spasm Last Admin: 10/25/18 17:44 Dose: 5 mg Enoxaparin Sodium (Lovenox) 40 mg SUBCUT Q24H JOSSELIN Last Admin: 10/25/18 17:16 Dose: 40 mg Hydromorphone HCl (Dilaudid) 0.5 mg IVPUSH Q2H PRN PRN Reason: Pain (severe 7-10) Last Admin: 10/25/18 21:40 Dose: 0.5 mg Sodium Chloride (Normal Saline) 500 mls @ 500 mls/hr IV .BOLUS [facility] Last Admin: 10/26/18 01:57 Dose: 500 mls/hr Sodium Chloride (Normal Saline) 1,000 mls @ 75 mls/hr IV ASDIRECTED [facility] Last Infusion: 10/26/18 09:06 Dose: Infused Ibuprofen (Motrin) 600 mg PO Q6H PRN PRN Reason: Pain (mild 1-3) Last Admin: 10/26/18 09:56 Dose: 600 mg Non-Formulary Medication (Aspirin [Aspirin]) 325 mg PO BEDTIME [facility] Last Admin: 10/25/18 20:38 Dose: Not Given Non-Formulary Medication (Calcium Carbonate [Calcium]) 500 mg PO DAILY [facility] Last Admin: 10/26/18 07:34 Dose: Not Given Non-Formulary Medication (Celecoxib [Celecoxib]) 200 mg PO DAILY [facility] Last Admin: 10/26/18 07:34 Dose: Not Given Non-Formulary Medication (Cholecalciferol (Vitamin D3) [Vitamin D3]) 1,000 units PO DAILY [facility] Last Admin: 10/26/18 07:34 Dose: Not Given Non-Formulary Medication (Letrozole [Letrozole]) 2.5 mg PO BEDTIME [facility] Last Admin: 10/25/18 20:38 Dose: Not Given Non-Formulary Medication (Magnesium [Magnesium]) 250 mg PO DAILY [facility] Last Admin: 10/26/18 07:34 Dose: Not Given Non-Formulary Medication (Simvastatin [Simvastatin]) 20 mg PO BEDTIME [facility] Last Admin: 10/25/18 20:38 Dose: Not Given Ondansetron HCl (Zofran) 4 mg IV Q6H PRN PRN Reason: Nausea/Vomiting Oxycodone/Acetaminophen (Percocet 325-5 Mg) 1 tab PO Q4H PRN PRN Reason: Pain (moderate 4-6) Discontinued Medications Diazepam (Valium) 4 mg IVPUSH ONETIME ONE Stop: 10/25/18 11:34 Last Admin: 10/25/18 12:22 Dose: Not Given Diazepam (Valium.) 5 mg PO ONETIME ONE Stop: 10/25/18 14:48 Last Admin: 10/25/18 16:54 Dose: Not Given Hydromorphone HCl (Dilaudid) 1 mg IVPUSH ONETIME ONE Stop: 10/25/18 12:16 Last Admin: 10/25/18 12:21 Dose: 1 mg Hydromorphone HCl (Dilaudid) 0.5 mg IVPUSH ONETIME ONE Stop: 10/25/18 14:42 Last Admin: 10/25/18 14:48 Dose: 0.5 mg Hydromorphone HCl (Dilaudid) 1 mg IVPUSH ONETIME ONE Stop: 10/25/18 23:11 Last Admin: 10/25/18 23:31 Dose: 1 mg Iopamidol (Isovue-370 (76%)) 100 ml IVPUSH ONETIME ONE Stop: 10/25/18 23:20 Last Admin: 10/25/18 23:30 Dose: 150 ml Ketamine HCl (Ketalar) 20 mg IV ONETIME ONE Stop: 10/25/18 22:09 Last Admin: 10/25/18 23:32 Dose: Not Given Ketorolac Tromethamine (Toradol) 30 mg IVPUSH ONETIME ONE Stop: 10/25/18 16:02 Last Admin: 10/25/18 17:38 Dose: 30 mg Lorazepam (Ativan) 1 mg IVPUSH ONETIME ONE Stop: 10/25/18 12:16 Last Admin: 10/25/18 14:46 Dose: Not Given Morphine Sulfate (Morphine) 4 mg IVPUSH ONETIME ONE Stop: 10/25/18 08:24 Last Admin: 10/25/18 08:32 Dose: 4 mg Morphine Sulfate (Morphine) 2 mg IVPUSH ONETIME ONE Stop: 10/25/18 09:42 Last Admin: 10/25/18 12:25 Dose: Not Given Ondansetron HCl (Zofran) 4 mg IVPUSH NOW STA Stop: 10/25/18 08:24 Last Admin: 10/25/18 08:30 Dose: 4 mg Ondansetron HCl (Zofran) 4 mg IVPUSH NOW STA Stop: 10/25/18 23:11 Last Admin: 10/25/18 23:31 Dose: 4 mg Orphenadrine Citrate (Norflex) 60 mg IM Q12H [facility] Last Admin: 10/25/18 09:13 Dose: 60 mg - Exam General: Reports: Alert, Oriented, Cooperative, No Acute Distress Lungs: Reports: Clear to Auscultation, Normal Respiratory Effort Cardiovascular: Reports: Regular Rate, Regular Rhythm, No Murmurs Back Exam: Reports: Normal Inspection, Full Range of Motion. Denies: CVA Tenderness (L), CVA Tenderness (R), Decreased Range of Motion, Muscle Spasm, Paraspinal Tenderness, Vertebral Tenderness Extremities: Normal Inspection, Normal Range of Motion, No Pedal Edema, Normal Capillary Refill, Other (mild tenderness left proximal 1/3 lateral and anterior thigh pain. ) Skin: Reports: Warm, Dry, Intact Neurological: Reports: No New Focal Deficit Psy/Mental Status: Reports: Alert, Normal Affect, Normal Mood
== END 2018-10-26 11:09 | disposition home or self-care (01) ==
LOC: CC.ED 08:13 → CC.MS 15:00 → UNDOADMOB 15:20 → CC.MS 15:20 → UNDODISOB 10-26 11:09
PROVIDERS: ADMIT Nurse Practitioner; ATTEND Family Medicine
DX: M79.652 Pain in left thigh (principal); E78.00 Pure hypercholesterolemia, unspecified; Z79.82 Long term (current) use of aspirin; Z79.1 Long term (current) use of non-steroidal anti-inflammatories (NSAID); Z79.899 Other long term (current) drug therapy
CPT/HCPCS: 36415; 71275; 73502; 73700; 75635; 80048; 80053; 81001; 82550; 83605; 83690; 85025; 85379; 85651; 86140; 87040; 93971; 96361; 96372; 96374; 96375; 96376; 99285; A9270; G0378; J1170; J1650; J1885; J2270; J2360; J2405; J7030; J7040; Q9967

== ENCOUNTER 2018-10-27 07:01 | Emergency (ER) | payer BC ==
[2018-10-27] MEDS ORDERED: HYDROmorphone 1 MG/ML Syringe IVPUSH ONE ×2 (07:25→08:14)
[2018-10-27] MEDS ORDERED: Ondansetron 4 MG/2 ML SDV IVPUSH STA (07:25)
--- NOTE | 2018-10-27 07:35 | EDM.PDOC ---
ED HPI GENERAL MEDICAL PROBLEM - General Chief Complaint: Lower Extremity Injury/Pain Stated Complaint: PAIN TO LEFT GROIN, LEFT LOWER ABD, LEFT THIGH, Time Seen by Provider: 10/27/18 07:10 Source of Information: Reports: Patient History Limitations: Reports: No Limitations - History of Present Illness INITIAL COMMENTS - FREE TEXT/NARRATIVE: This patent is a 63 year old female that presents to the ER. Patient was discharged from the hospital yesterday. Patient at discharge refused pain medications to take home. The patient has come back to the ER today complaining of Left anterior/medial thigh pain. Patient was seen in the ER on Saturday for a similar pain. Saturday she had xray of the left hip, ct withotu contrast of the left hip, and a CTA of the chest, abd/pelvis, lower extremity with run offs. All tests were negative for acute findings. I consulted with physician with [facility] during that visit. Plan was to admit patient and attempt to get pain under control due to patient being in 10/10 pain and a lot of medications used to treat the pain. Patient yesterday morning was finally having tolerable pain. She was able to stand and ambulate. The patient reported yesterday that she no longer wanted to stay in the hospital and go home. She did not want pain medcation at home. I offered prescription and take home medications for pain. She reported that she felt Aleve would be stronge enough. Educated patent about amount of medications taken here. No pain medications were sent home. Today, the patient returns to the emergency department in 10/10 pain to the left thigh/ groin region. The patient reports pain is worse with movement or with sitting. Patient denies cummings, dizziness, n, v, d, f, neck pain, neck stiffness, cp, soa, abd pain, urinary/bowel changes, urinary/bowel incontinence, numbness/tingling around rectum, numbness/tingling down the extremity, pelvic pain, vaginal bleeding, rashes, injury. Onset Date: 10/25/18 Location: Reports: Lower Extremity, Left Front/Back Body Image: 1 - laird severe. mild tender. Quality: Reports: Same as Previous Episode, Throbbing Severity: Severe Improves with: Reports: None Worsens with: Reports: Movement Associated Symptoms: Denies: Confusion, Chest Pain, Cough, cough w sputum, Diaphoresis, Fever/Chills, Headaches, Loss of Appetite, Malaise, Nausea/Vomiting , Rash, Seizure, Shortness of Breath, Syncope, Weakness Left lower abdomen, left groin, left thigh, down to knee Pain Score (Numeric/FACES): 10 - Related Data Allergies Allergy/AdvReac Type Severity Reaction Status Date / Time No Known Allergies Allergy Verified 10/27/18 07:07 Home Meds: Home Meds Aspirin 325 mg PO BEDTIME 03/28/17 [History] Cholecalciferol (Vitamin D3) [Vitamin D3] 1,000 units PO DAILY 03/28/17 [History ] Magnesium 250 mg PO DAILY 03/28/17 [History] Calcium Carbonate [Calcium] 500 mg PO DAILY 06/09/18 [History] Celecoxib 200 mg PO DAILY 06/09/18 [History] Letrozole 2.5 mg PO BEDTIME 06/09/18 [History] Simvastatin 20 mg PO BEDTIME 06/09/18 [History] Past Medical History HEENT History: Reports: Impaired Vision Cardiovascular History: Reports: High Cholesterol [employer] History: Reports: Oncologic (Cancer) History: Reports: Breast - Past Surgical History GI Surgical History: Reports: Appendectomy Social & Family History - Family History Family Medical History: Noncontributory - Caffeine Use Caffeine Use: Reports: Coffee - Living Situation & Occupation Living situation: Reports: , Alone Occupation: Employed Review of Systems - Review of Systems Review Of Systems: See Below Constitutional: Reports: No Symptoms Eyes: Reports: No Symptoms Ears: Reports: No Symptoms Nose: Reports: No Symptoms Mouth/Throat: Reports: No Symptoms Respiratory: Reports: No Symptoms Cardiovascular: Reports: No Symptoms GI/Abdominal: Reports: No Symptoms Genitourinary: Reports: No Symptoms Musculoskeletal: Reports: Leg Pain (left anterior and now medial left thigh pain. ) Skin: Reports: No Symptoms Neurological: Reports: No Symptoms Psychiatric: Reports: No Symptoms ED EXAM, GENERAL - Physical Exam Exam: See Below Exam Limited By: No Limitations General Appearance: Alert, WD/WN, No Apparent Distress Eye Exam: Bilateral Eye: Normal Inspection Ears: Normal External Exam Ear Exam: Bilateral Ear: Auricle Normal Nose: Normal Inspection, Normal Mucosa, No Blood Throat/Mouth: Normal Inspection, Normal Lips, Normal Teeth, Normal Gums, Normal Oropharynx, Normal Voice, No Airway Compromise Head: Atraumatic, Normocephalic Neck: Normal Inspection, Supple, Non-Tender, Full Range of Motion Respiratory/Chest: No Respiratory Distress, Lungs Clear, Normal Breath Sounds, No Accessory Muscle Use, Chest Non-Tender Cardiovascular: Normal Peripheral Pulses, Regular Rate, Rhythm, No Edema, No Gallop, No JVD, No Murmur, No Rub Peripheral Pulses: 2+: Radial (R), Femoral (L), Posterior Tibial (L), Posterior Tibial (R), Dorsalis Pedis (L), Dorsalis Pedis (R) GI/Abdominal: Normal Bowel Sounds, Soft, Non-Tender, No Organomegaly, No Distention, No Abnormal Bruit, No Mass, Pelvis Stable Back Exam: Normal Inspection, Full Range of Motion. No: CVA Tenderness (L), CVA Tenderness (R), Decreased Range of Motion, Muscle Spasm, Paraspinal Tenderness, Vertebral Tenderness Extremities: Normal Inspection, Normal Range of Motion, No Pedal Edema, Normal Capillary Refill, Other (Left atnerior/medial thigh aspect. No bone tenderness. ROM intact. No crepitus, no nodules or masses felt. Leg appears same in comparison to Right. Pulses +2 popliteal, femoral, and pedal. Sensory/motor functon intact. Neurovascular intact. ). No: Pedal Edema, Limited Range of Motion Neurological: Alert, Oriented, Normal Cognition, No Motor/Sensory Deficits Psychiatric: Normal Affect, Normal Mood Skin Exam: Warm, Dry, Intact, Normal Color, No Rash. No: Cool, Cyanosis, Decubitus, Diaphoretic, Ecchymosis, Erythema, Increased Warmth, Jaundice, Mottled, Pallor, Rash Lymphatic: No Adenopathy Course - Vital Signs Last Recorded V/S: Last Vital Signs Temp 98.4 F 10/27/18 08:25 Pulse 82 10/27/18 08:25 Resp 22 H 10/27/18 08:25 BP 130/107 H 10/27/18 08:25 Pulse Ox 99 10/27/18 08:25 - Orders/Labs/Meds Labs: Laboratory Tests 12/09/0410/27/18 10/27/18 Range/Units 07:23 07:24 07:25 WBC 4.0 L (5.0-10.0) 10^3/uL RBC 4.03 (4.00-5.50) 10^6/uL Hgb 12.6 (12.0-16.0) g/dL Hct 36.5 L (37.0-47.0) % MCV 90.6 (82.0-94.0) fL MCH 31.3 (27.0-32.0) pg MCHC 34.5 (33.0-38.0) g/dL RDW Coeff of Felisa 13.0 (11.0-15.0) % Plt Count 227 (150-400) 10^3/uL Neut % (Auto) 34.1 L (35-85) % Lymph % (Auto) 46.7 (10-55) % [place] % (Auto) 10.6 (0-16) % Eos % (Auto) 7.6 H (0-5) % Baso % (Auto) 1.0 (0-3) % Neut # (Auto) 1.35 L (1.80-7.00) 10^3/uL Lymph # (Auto) 1.85 (1.00-4.80) 10^3/uL [place] # (Auto) 0.42 (0.00-0.80) 10^3/uL Eos # (Auto) 0.30 (0.00-0.45) 10^3/uL Baso # (Auto) 0.04 10^3/uL ESR 18 (0-20) mm/hr Sodium 143 (136-145) mEq/L Potassium 3.8 (3.5-5.0) mEq/L Chloride 106 (98-106) mEq/L Carbon Dioxide 26 (21-32) mmol/L BUN 13 (7-18) mg/dL Creatinine 0.8 (0.6-1.0) mg/dL Est Cr Clr Drug Dosing 55.45 mL/min Estimated GFR (MDRD) > 60 (>=60) mL/min Glucose 103 H (75-99) mg/dL Calcium 8.7 (8.4-10.1) mg/dL Magnesium (1.8-2.4) mg/dL Total Bilirubin 0.6 (0.0-1.0) mg/dL AST 29 (15-37) U/L ALT 28 (12-78) U/L Alkaline Phosphatase 64 (46-116) U/L Creatine Kinase 617 H (21-215) U/L C-Reactive Protein < 0.2 L (0.2-0.8) mg/dL Total Protein 6.7 (6.4-8.2) g/dL Albumin 3.4 (3.4-5.0) g/dL 10/27/18 Range/Units 07:25 WBC (5.0-10.0) 10^3/uL RBC (4.00-5.50) 10^6/uL Hgb (12.0-16.0) g/dL Hct (37.0-47.0) % MCV (82.0-94.0) fL MCH (27.0-32.0) pg MCHC (33.0-38.0) g/dL RDW Coeff of Felisa (11.0-15.0) % Plt Count (150-400) 10^3/uL Neut % (Auto) (35-85) % Lymph % (Auto) (10-55) % [place] % (Auto) (0-16) % Eos % (Auto) (0-5) % Baso % (Auto) (0-3) % Neut # (Auto) (1.80-7.00) 10^3/uL Lymph # (Auto) (1.00-4.80) 10^3/uL [place] # (Auto) (0.00-0.80) 10^3/uL Eos # (Auto) (0.00-0.45) 10^3/uL Baso # (Auto) 10^3/uL ESR (0-20) mm/hr Sodium (136-145) mEq/L Potassium (3.5-5.0) mEq/L Chloride (98-106) mEq/L Carbon Dioxide (21-32) mmol/L BUN (7-18) mg/dL Creatinine (0.6-1.0) mg/dL Est Cr Clr Drug Dosing mL/min Estimated GFR (MDRD) (>=60) mL/min Glucose (75-99) mg/dL Calcium (8.4-10.1) mg/dL Magnesium 1.7 L (1.8-2.4) mg/dL Total Bilirubin (0.0-1.0) mg/dL AST (15-37) U/L ALT (12-78) U/L Alkaline Phosphatase (46-116) U/L Creatine Kinase (21-215) U/L C-Reactive Protein (0.2-0.8) mg/dL Total Protein (6.4-8.2) g/dL Albumin (3.4-5.0) g/dL Meds: Medications Discontinued Medications Generic Name Dose Route Start Last Admin Trade Name Ricardo PRN Reason Stop Dose Admin Diazepam 10 mg 10/27/18 08:14 10/27/18 08:22 Valium. PO 10/27/18 08:15 10 mg ONETIME ONE Administration Hydromorphone HCl 1 mg 10/27/18 07:25 10/27/18 07:29 Dilaudid IVPUSH 10/27/18 07:26 1 mg ONETIME ONE Administration Hydromorphone HCl 1 mg 10/27/18 08:14 10/27/18 08:18 Dilaudid IVPUSH 10/27/18 08:15 1 mg ONETIME ONE Administration Ondansetron HCl 4 mg 10/27/18 07:25 10/27/18 07:30 Zofran IVPUSH 10/27/18 07:26 4 mg NOW STA Administration - Re-Assessments/Exams Free Text/Narrative Re-Assessment/Exam: 10/27/18 08:18 Discussed with [facility] again today, they visulaized patient. They recommend transfer. Unkown cause at this time with disproportionate pain on exam. CRP is mildy more elevated thatn yesterday. Patient is crying in pain. I have called [facility] who has no beds. I called and spoke to Anj[facility] Morales, Dr. Richter , hospitalist. He suggest she may need MRI, or CT with IV contrast. He said he will accept the patient. 10/27/18 08:28 The risk verse benefits explained to the patient. The benefits of transfer are higher level of care, MRI, specialist. The risk of transfer are loss of limb, mvc, , worsening of pain. The benefits of staying here are close to home. The risk of staying here is no MRI, loss of limb, loss of function, increased pain, . Departure - Departure Time of Disposition: 08:31 Disposition: DC/Tfer to Acute Hospital 02 Condition: Poor Clinical Impression: Intractable pain, Left thigh pain, Left hip pain - Discharge Information *PRESCRIPTION DRUG MONITORING PROGRAM REVIEWED*: No *COPY OF PRESCRIPTION DRUG MONITORING REPORT IN PATIENT MABLE: No Referrals: PCP,Unknown [Primary Care Provider] - Forms: ED Department Discharge - Assessment/Plan Plan: PLEASE SEE RN NOTE FOR PFSH.
[2018-10-27 07:44] LABS: CHLORIDE,CL 106 mEq/L (98-106); SODIUM,NA 143 mEq/L (136-145)
[2018-10-27] MEDS ORDERED: Diazepam 5 MG Tab PO ONE (08:14)
[2018-10-27 08:25] VITALS: BP 130/107
== END 2018-10-27 09:05 ==
LOC: CC.ED 07:01
DX: M79.652 Pain in left thigh (principal); M25.552 Pain in left hip; E78.00 Pure hypercholesterolemia, unspecified; Z79.82 Long term (current) use of aspirin; Z79.899 Other long term (current) drug therapy
CPT/HCPCS: 36415; 80053; 82550; 83735; 85025; 85651; 86140; 96374; 96375; 96376; 99285; A9270; J1170; J2405

== ENCOUNTER 2024-10-02 15:48 | Emergency (ER) | payer MEDICARE, OTHER ==
[2024-10-02 16:15] VITALS: BP 149/90; PULSE 94
[2024-10-02] MEDS: Orphenadrine 60 MG/2 ML Inj IM ONE (16:17)
[2024-10-02] MEDS: Ketorolac 30 MG/ML SDV IM ONE (16:18)
[2024-10-02] MEDS: Take Home: Cyclobenzaprine 10 MG Tab, 4 Tab Pack PO ONE (17:14)
[2024-10-02] MEDS: Lidocaine 4% 1 each Patch TOP PRN (17:14)
[2024-10-02] MEDS: Take Home: Acetaminophen/HYDROcodone 325-5 MG, 2 Tab Pack PO ONE (17:14)
== END 2024-10-02 17:15 | disposition home or self-care (01) ==
LOC: CC.ED 15:48
DX: S20.212A Contusion of left front wall of thorax, initial encounter (principal); Z79.899 Other long term (current) drug therapy; Z90.49 Acquired absence of other specified parts of digestive tract; W01.0XXA Fall on same level from slipping, tripping and stumbling without subsequent striking against object, initial encounter
CPT/HCPCS: 71101-LT; 96372; 99283; A9270-GY; J1885; J2360